=== PATIENT | female | born 1995 | race American Indian/Alaskan Native ===

== ENCOUNTER 2017-11-04 19:53 | Emergency (ER) | payer MEDICAID, OTHER ==
[2017-11-04 20:26] VITALS: TEMP 98.4
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
[2017-11-04 23:11] VITALS: BP 115/82; PULSE 86; RESP 18; O2SAT 100
== END 2017-11-04 21:30 | disposition home or self-care (01) ==
LOC: ED 19:53
DX: M54.2 Cervicalgia (principal); V49.40XA Driver injured in collision with unspecified motor vehicles in traffic accident, initial encounter; Y92.410 Unspecified street and highway as the place of occurrence of the external cause
CPT/HCPCS: 96372; 99283; J1885